=== PATIENT | male | born 1950 | race Caucasian/White ===

== ENCOUNTER → 2020-04-25 09:15 | Outpatient (CLI) | payer OTHER, MEDICARE, SELFPAY ==
--- NOTE | ~2020-04-25 | MR_ITS ---
EXAMINATION: MR lumbar spine wo con DATE: 04/25/2020 10:05 INDICATION: Low back pain. TECHNIQUE: Magnetic resonance imaging (MRI) of the lumbar spine was performed without intravenous con trast. Sequences included sagittal T2-weighted FSE, sagittal T2-weighted FS FSE, sagittal T1-weighted FSE, and axial T2-weighted FSE. COMPARISON: Lumbar spine MRI 12/01/2018 FINDINGS: There is 10 degrees levoscoliosis of thoracolumbar spine. There is 3 mm retrolisthesis of T 12 on L1 and L1 on L2 and 3 mm anterolisthesis of L3 on L4. Vertebral body heights are normal. There is moderately decreased disc height at T12-L1, severely decreased disc height at L1-L2, moderately de creased disc height at L2-L3, L3-L4, and L4-L5, and severely decreased disc height at L5-S1. The dist al spinal cord signal intensity is normal. The conus medullaris is at T12-L1. The following disc leve ls are specifically discussed: T12-L1: The disc is bulging and has an annular fissure. There is mild bilateral facet joint osteoarth ritis. There is mild bilateral neural foraminal stenosis. There is mild central canal stenosis. L1-L2: The disc is bulging and has an annular fissure. There is moderate bilateral facet joint osteoa rthritis. There is moderate bilateral neural foraminal stenosis. There is mild central canal stenosis . L2-L3: The disc is bulging and has an annular fissure. There is moderate right and mild left facet jess int osteoarthritis. There is moderate bilateral neural foraminal stenosis. There is mild central son l stenosis. L3-L4: The disc is bulging and has an annular fissure. There is severe bilateral facet joint osteoart hritis. There is mild right and moderate left neural foraminal stenosis. There is moderate central ca nal stenosis. L4-L5: The disc is bulging and has an annular fissure. There is moderate right and severe left facet joint osteoarthritis. There is moderate bilateral neural foraminal stenosis. There is mild central ca nal stenosis. L5-S1: The disc is bulging and has an annular fissure. There is moderate bilateral facet joint osteoa rthritis. There is moderate bilateral neural foraminal stenosis. There is mild central canal stenosis . IMPRESSION: 1. Severe lumbar spondylosis, stable from 12/01/2018. Reviewed, dictated and finalized at location A. [facility]
== END ==
PROVIDERS: PCP Internal Medicine
DX: R29.6 Repeated falls (principal); M47.896 Other spondylosis, lumbar region
CPT/HCPCS: 72148

== ENCOUNTER → 2020-07-04 12:59 | Outpatient (CLI) | payer OTHER, MEDICARE, SELFPAY ==
--- NOTE | ~2020-07-04 | MR_ITS ---
EXAMINATION: MR cervical spine wo con EXAM DATE: 07/04/2020 13:49 INDICATION: Unsteadiness on feet. TECHNIQUE: Multi-sequential, multiplanar MR images of the cervical spine were obtained without contra st. Axial T2, axial T2 MERGE sequence. Sagittal T1, T2, T2 fat saturation images also obtained. Th ere is no prior study for comparison. FINDINGS: There is moderate reversal normal cervical lordosis. There is moderate to severe disc dise ase C3-T1. There is 2 mm retrolisthesis C4 on C5, 5 on C6 and C6 on C7. The spinal cord signal intens ity and intrinsic morphology is normal. Cervicomedullary junction is normal in appearance. Paraspinal soft tissue is unremarkable. Level by level evaluation: C2-C3: Disc does not extend beyond the endplate margin. Uncovertebral joint arthropathy: Mild bilateral. Facet joint arthropathy: Moderate left, mild right. Neural foraminal stenosis: No stenosis. Central canal stenosis: No stenosis. C3-C4: There is a mild diffuse disc bulge. Uncovertebral joint arthropathy: Moderate bilateral. Facet joint arthropathy: Mild to moderate bilateral. Neural foraminal stenosis: Moderate bilateral. Central canal stenosis: Mild. C4-C5: There is a mild to moderate diffuse disc bulge. Uncovertebral joint arthropathy: Severe right, moderate to severe left. Facet joint arthropathy: Moderate bilateral. Neural foraminal stenosis: Severe right, moderate to severe left. Central canal stenosis: Mild. C5-C6: There is a mild to moderate diffuse disc bulge. Uncovertebral joint arthropathy: Severe bilateral. Facet joint arthropathy: Moderate bilateral. Neural foraminal stenosis: Severe left, moderate to severe right. Central canal stenosis: Mild. C6-C7: There is a mild diffuse disc bulge. Uncovertebral joint arthropathy: Moderate to severe left, moderate right. Facet joint arthropathy: Mild to moderate bilateral. Neural foraminal stenosis: Moderate to severe left, moderate right. Central canal stenosis: Mild. C7-T1: There is a mild diffuse disc bulge. Uncovertebral joint arthropathy: Moderate bilateral. Facet joint arthropathy: Mild to moderate bilateral. Neural foraminal stenosis: Moderate right, mild to moderate left. Central canal stenosis: Minimal. IMPRESSION: 1. Advanced cervical spondylosis. Reviewed, dictated and finalized at location A. [facility]
== END ==
PROVIDERS: PCP Internal Medicine
DX: R26.81 Unsteadiness on feet (principal); M47.892 Other spondylosis, cervical region
CPT/HCPCS: 72141